=== PATIENT | male | born 1945 | race Caucasian/White ===

== ENCOUNTER 2018-11-23 21:31 | Emergency (ER) | payer MEDICARE ==
[~2018-11-23] VITALS: Ht 170.2 cm; Wt 79.4 kg
[2018-11-23] MEDS ORDERED: METF500 PO (21:58)
[2018-11-23] MEDS ORDERED: TAMS.4ER PO (21:58)
[2018-11-23 23:19] LABS: Source, Urine Catheter
[2018-11-23 23:31] LABS: Bilirubin, Urine Neg (Neg); Blood, Urine 5+ (Neg); Glucose Qualitative, Urine 2+ (Neg); Ketones, Urine 1+ (Neg); Leukocyte Esterase, Urine Neg (Neg); Nitrite, Urine Neg (Neg); Protein, Urine 4+ (Neg); Specific Gravity, Urine 1.025 (1.003-1.022); Urobilinogen, Urine NORM (Normal); pH, Urine 6.5 (5.0-8.0)
[2018-11-23 23:43] LABS: Appearance, Urine Bloody (Clear); Color, Urine Red (P-Yellow)
[2018-11-23 23:45] LABS: Bacteria Few /hpf; Red Blood Cells, Urine TNTC /hpf (0-2); Squamous Epithelial Cells Not Seen /hpf (Few); White Blood Cells, Urine Rare /hpf (0-5)
== END 2018-11-24 00:24 | disposition home or self-care (01) ==
LOC: ER 21:31
PROVIDERS: Emergency Medicine
DX: R33.9 Retention of urine, unspecified (principal); R31.9 Hematuria, unspecified; Z79.899 Other long term (current) drug therapy; Z79.84 Long term (current) use of oral hypoglycemic drugs; E11.9 Type 2 diabetes mellitus without complications
CPT/HCPCS: 51702; 51798; 74176; 81001; 87077; 87086; 87186; 99283-25

== ENCOUNTER 2018-11-27 08:30 | Emergency (ER) | payer MEDICARE ==
[~2018-11-27] VITALS: Ht 170.2 cm; Wt 79.4 kg
[~2018-11-27 08:30] MED LIST: METF500 PO; TAMS.4ER PO
[2018-11-27 09:03] LABS: BASOPHILS ABSOLUTE AUTO 0.04 K/mm3 (0.00-0.23); BASOPHILS PERCENT AUTO 1 % (0-2); EOSINOPHILS ABSOLUTE AUTO 0.16 K/mm3 (0.00-0.68); EOSINOPHILS PERCENT AUTO 2 % (0-6); Hemoglobin 14.5 g/dL (13.5-17.5); IMMATURE GRAN ABSOLUTE AUTO 0.06 K/mm3 (0.00-0.10); IMMATURE GRAN PERCENT AUTO 1 % (0-1); LYMPHOCYTES ABSOLUTE AUTO 1.91 K/mm3 (0.84-5.20); LYMPHOCYTES PERCENT AUTO 25 % (21-46); MONOCYTES ABSOLUTE AUTO 0.46 K/mm3 (0.16-1.47); MONOCYTES PERCENT AUTO 6 % (4-13); Mean Corpuscular HGB 28.7 pg (26.0-34.0); Mean Corpuscular HGB Conc 33.7 g/dL (31.5-36.5); Mean Corpuscular Volume 85 fL (80-100); Mean Platelet Volume 10.3 fL (9.1-12.4); NEUTROPHILS ABSOLUTE AUTO 4.98 K/mm3 (1.96-9.15); NEUTROPHILS PERCENT AUTO 66 % (41-73); Platelet Count 192 K/mm3 (150-400); RDW Coefficient Variation 12.4 % (11.7-14.2); RDW Standard Deviation 37.7 fL (35.1-46.3); Red Blood Cell Count 5.06 M/mm3 (4.30-5.90); White Blood Cell Count 7.61 K/mm3 (4.00-11.30)
[2018-11-27 09:24] LABS: Alanine Aminotransfer (ALT/SGP 42 U/L (12-78); Alk Phos 66 U/L (50-136); Anion Gap 9 mmol/L (6-16); Aspartate Aminotrans (AST/SGOT 23 U/L (12-37); Bilirubin, Total 0.4 mg/dL (0.1-1.0); Blood Urea Nitrogen 23 mg/dL (8-24); Bun/Creatinine Ratio 25.5 (12.0-20.0); CO2, Blood 23 mmol/L (21-32); Calcium, Blood 8.9 mg/dL (8.5-10.1); Chloride, Blood 106 mmol/L (98-108); Globulin, Blood 3.9 g/dL (2.2-4.0); Glomerular Filtration Rate >60 (60-); Glucose, Blood 200 mg/dL (70-99); Potassium, Blood 4.1 mmol/L (3.5-5.5); Sodium, Blood 138 mmol/L (136-145); Total Protein, Blood 7.9 g/dL (6.4-8.2)
[2018-11-27] MEDS ORDERED: Hytrin1 MG PO (10:28)
[2018-11-27] MEDS ORDERED: Norco 5-325 Ta1 EACH PO (10:28)
== END 2018-11-27 10:55 | disposition home or self-care (01) ==
LOC: ER 08:30
PROVIDERS: Emergency Medicine
DX: N32.89 Other specified disorders of bladder (principal); Z79.899 Other long term (current) drug therapy; Z79.84 Long term (current) use of oral hypoglycemic drugs; E11.9 Type 2 diabetes mellitus without complications
CPT/HCPCS: 36415; 51798; 80053; 85025; 86850; 86900; 86901; 93005; 93010; 99283-25; A9270-GY

== ENCOUNTER 2018-12-03 08:24 | Emergency (ER) | payer MEDICARE ==
[~2018-12-03] VITALS: Ht 170.2 cm; Wt 74.8 kg
[~2018-12-03 08:24] MED LIST changes: +Hytrin1 MG PO; +Norco 5-325 Ta1 EACH PO
[2018-12-03] MEDS ORDERED: CEPH250A PO (09:52)
[2018-12-03] MEDS ORDERED: ABAT250V (09:52)
[2018-12-03 11:56] LABS: Source, Urine Catheter
[2018-12-03 11:59] LABS: Bilirubin, Urine Neg (Neg); Blood, Urine 5+ (Neg); Glucose Qualitative, Urine Neg (Neg); Ketones, Urine Neg (Neg); Leukocyte Esterase, Urine 1+ (Neg); Nitrite, Urine Neg (Neg); Protein, Urine 2+ (Neg); Specific Gravity, Urine 1.025 (1.003-1.022); Urobilinogen, Urine NORM (Normal)
[2018-12-03 12:22] LABS: Appearance, Urine Hazy (Clear); Color, Urine Yellow (P-Yellow)
[2018-12-03 12:33] LABS: Bacteria Mod /hpf; Red Blood Cells, Urine TNTC /hpf (0-2); Squamous Epithelial Cells Rare /hpf (Few); Uric Acid Crystals Mod /hpf
== END 2018-12-03 13:00 | disposition home or self-care (01) ==
LOC: ER 08:24
PROVIDERS: Emergency Medicine
DX: T83.091A Other mechanical complication of indwelling urethral catheter, initial encounter (principal); E11.9 Type 2 diabetes mellitus without complications; Z79.899 Other long term (current) drug therapy; Z79.84 Long term (current) use of oral hypoglycemic drugs
CPT/HCPCS: 51700; 51798; 81001; 87086; 99283-25

== ENCOUNTER 2018-12-05 21:10 | Emergency (ER) | payer MEDICARE ==
[~2018-12-05] VITALS: Ht 170.2 cm; Wt 74.8 kg
[~2018-12-05 21:10] MED LIST changes: +ABAT250V; +CEPH250A PO
== END 2018-12-06 00:32 | disposition home or self-care (01) ==
LOC: ER 21:10
DX: T83.098A Other mechanical complication of other urinary catheter, initial encounter (principal); R33.9 Retention of urine, unspecified; Z79.899 Other long term (current) drug therapy; Z79.84 Long term (current) use of oral hypoglycemic drugs; E11.9 Type 2 diabetes mellitus without complications
CPT/HCPCS: 51700; 51702; 99282-25

== ENCOUNTER 2018-12-07 21:21 | Emergency (ER) | payer MEDICARE ==
[~2018-12-07] VITALS: Ht 170.2 cm; Wt 74.8 kg
== END 2018-12-07 23:02 | disposition home or self-care (01) ==
LOC: ER 21:21
DX: T83.098A Other mechanical complication of other urinary catheter, initial encounter (principal); C67.9 Malignant neoplasm of bladder, unspecified; Z79.899 Other long term (current) drug therapy; Z79.84 Long term (current) use of oral hypoglycemic drugs; E11.9 Type 2 diabetes mellitus without complications
CPT/HCPCS: 51700; 51798; 99283-25

== ENCOUNTER 2018-12-08 17:32 | Emergency (ER) | payer MEDICARE ==
[~2018-12-08] VITALS: Ht 170.2 cm; Wt 74.8 kg
== END 2018-12-08 18:47 | disposition home or self-care (01) ==
LOC: ER 17:32
DX: T83.091A Other mechanical complication of indwelling urethral catheter, initial encounter (principal); E11.9 Type 2 diabetes mellitus without complications; Z79.899 Other long term (current) drug therapy; Z79.84 Long term (current) use of oral hypoglycemic drugs
CPT/HCPCS: 51798; 74178; 99283-25; Q9967

== ENCOUNTER 2018-12-10 17:59 | Emergency (ER) | payer MEDICARE ==
[~2018-12-10] VITALS: Ht 170.2 cm; Wt 73.9 kg
== END 2018-12-10 20:30 | disposition home or self-care (01) ==
LOC: ER 17:59
DX: T83.091A Other mechanical complication of indwelling urethral catheter, initial encounter (principal); E11.9 Type 2 diabetes mellitus without complications; Z79.899 Other long term (current) drug therapy; Z79.84 Long term (current) use of oral hypoglycemic drugs
CPT/HCPCS: 99283

== ENCOUNTER 2018-12-12 16:29 | Emergency (ER) | payer MEDICARE ==
[~2018-12-12] VITALS: Ht 170.2 cm; Wt 73.9 kg
== END 2018-12-12 17:42 | disposition home or self-care (01) ==
LOC: ER 16:29
DX: T83.098A Other mechanical complication of other urinary catheter, initial encounter (principal); E11.9 Type 2 diabetes mellitus without complications; Z79.899 Other long term (current) drug therapy; Z79.84 Long term (current) use of oral hypoglycemic drugs
CPT/HCPCS: 51700; 99282-25

== ENCOUNTER → 2020-02-19 | Outpatient (CLI) | payer MEDICARE | END | disposition home or self-care (01) | LOC: LAB SHORT 15:11 → PLD 15:11 | DX: L82.1 Other seborrheic keratosis (principal) | CPT/HCPCS: 88305 ==

== ENCOUNTER 2022-05-26 09:55 | Observation (INO) | payer MEDICARE ==
[~2022-05-26] VITALS: Ht 170.2 cm; Wt 76.0 kg
[2022-05-26 10:19] LABS: BASOPHILS ABSOLUTE AUTO 0.05 K/mm3 (0.00-0.23); BASOPHILS PERCENT AUTO 1 % (0-2); EOSINOPHILS PERCENT AUTO 4 % (0-6); Hematocrit 45.7 % (37.0-53.0); Hemoglobin 15.6 g/dL (13.5-17.5); IMMATURE GRAN ABSOLUTE AUTO 0.06 K/mm3 (0.00-0.10); IMMATURE GRAN PERCENT AUTO 1 % (0-1); LYMPHOCYTES ABSOLUTE AUTO 2.05 K/mm3 (0.84-5.20); LYMPHOCYTES PERCENT AUTO 36 % (21-46); MONOCYTES ABSOLUTE AUTO 0.41 K/mm3 (0.16-1.47); MONOCYTES PERCENT AUTO 7 % (4-13); Mean Corpuscular HGB 28.2 pg (26.0-34.0); Mean Corpuscular HGB Conc 34.1 g/dL (31.5-36.5); Mean Corpuscular Volume 83 fL (80-100); Mean Platelet Volume 10.4 fL (9.1-12.4); NEUTROPHILS ABSOLUTE AUTO 2.93 K/mm3 (1.96-9.15); NEUTROPHILS PERCENT AUTO 51 % (41-73); Platelet Count 169 K/mm3 (150-400); RDW Coefficient Variation 12.6 % (11.7-14.2); RDW Standard Deviation 37.7 fL (35.1-46.3); Red Blood Cell Count 5.54 M/mm3 (4.30-5.90)
[2022-05-26 10:36] LABS: Albumin, Blood 3.6 g/dL (3.4-5.0); Albumin/Globulin Ratio 0.9 (0.8-1.8); Bilirubin, Total 0.4 mg/dL (0.1-1.0); Bun/Creatinine Ratio 24.6 (12.0-20.0); Calcium, Blood 8.6 mg/dL (8.5-10.1); Creatinine, Blood 0.69 mg/dL (0.60-1.20); Globulin, Blood 3.8 g/dL (2.2-4.0); Potassium, Blood 3.8 mmol/L (3.5-5.5); Total Protein, Blood 7.4 g/dL (6.4-8.2)
--- NOTE | 2022-05-26 16:49 | NUR ---
SHIFT SUMMARY: PT A&O X4. PT IS A VERY PLEASANT MAN WHO IS COOPERATIVE WITH ALL CARE PROVIDED. PT OBS FOR DX CHEST PAIN. PT HAS NOT HAD ANY BEEN SINCE ARRIVING TO MEDICAL FLOOR. PT HAS BEEN HYPERTENSIVE W/ SYSTOLIC BETWEEN 151 AND 192 SINCE ARRIVAL TO ED. CALLED DR. COLLADO WHO GAVE ME AN ORDER FOR HYDRALAZINE PO Q6 PRN SYSTOLIC >160. GAVE PT HYDRALAZINE AT 1633 AND WILL REASSESS AT 1730. PT INDEPENDENT IN ROOM. IV PATENT AND SALINE LOCKED. TELE IN PLACE RUNNING AT SINUS RHYTHM. TROPONIN REMAIN NEGATIVE. CALL LIGHT IN REACH. WILL CONTINUE TO MONITOR.
--- NOTE | 2022-05-27 05:17 | NUR ---
PT ISD A&O4, INDEPENDENT WITH ADLS, RA, VSS, NO CHEST PAIN OR DISCOMFORT OVERNIGHT, STRESS TEST TODAY, COTINUE POC
[2022-05-27 05:57] LABS: Bun/Creatinine Ratio 19.9 (12.0-20.0); Calcium, Blood 8.6 mg/dL (8.5-10.1); Creatinine, Blood 0.81 mg/dL (0.60-1.20); Potassium, Blood 3.9 mmol/L (3.5-5.5)
--- NOTE | 2022-05-27 07:55 | NUR ---
ALERT AND ORIENTED, PRN HYDRALAZINE FOR SBP 170, NPO FOR STRESS TEST, PATIENT TO POSSIBLE GO EARLY AND IF NOT PATIENT WILL EAT BREAKFAST WITHOUT CAFFEINE, CALL LIGHT WITH IN REACH, NO DISTRESS, PLEASANT TO CARE
--- NOTE | 2022-05-27 18:34 | NUR ---
NO ACUTE CHANGES, NPO AT MIDNOGHT AND NO CAFFEINE AFTER DINNER, PATIENT STATES UNDERSTANDING, SECOND PART OF STRESS TEST TO BE DONE AT 7 AM TOMORROW, DENIES CP, SOB, OR N/V, CALL LIGHT WITH IN REACH, PLEASANT TO CARE, WILL RELAY TO PM RN
--- NOTE | 2022-05-27 19:15 | NUR ---
RECEIVED BEDSIDE REPORT FROM DAY SHIFT RN. PT LYING IN BED WATCHING TV. A/O. RESP E/U ON RA. DENIES CP AND SOB. ON TELE. NO NEEDS AT THIS TIME. CALL LT IN REACH.
--- NOTE | 2022-05-27 20:37 | NUR ---
PT ALERT AND ORIENTED. UNDERSTANDS HE WILL BE NPO AFTER MIDNIGHT FOR 2ND PORTION OF STRESS TEST AT 0700. INDEP IN RM. DENIES CP AND SOB. NO EDEMA NOTED. SALINE LOCKED. SINUS AT 65 ON TELE. NO NEEDS AT THIS TIME. WILL CONTINUE TO PROVIDE CARE. CALL LT IN REACH.
--- NOTE | 2022-05-27 21:24 | NUR ---
NOTIFIED BY AFFILIATE MARKETING COORDINATOR THAT PT HAD A 2.46 SECOND PAUSE AT 2122. PER AFFILIATE MARKETING COORDINATOR, THIS WAS THE FIRST EVENT. CHECKED ON PT RIGHT AFTER THE CALL CAME AND PT WAS SITTING IN BED WATCHING TV. NO COMPLAINTS OF CP OR ANY OTHER SYMPTOM. RESP E/U ON RA. WILL CONTINUE TO PROVIDE CARE. CALL LT IN REACH.
--- NOTE | 2022-05-27 22:06 | NUR ---
25 MG PO HYDRALAZINE GIVEN FOR BP 168/73, HR 66. PT DENIES CP, CHEST PRESSURE AND SOB. NO OTHER NEEDS. PT WATCHING TV. CALL LT IN REACH.
--- NOTE | 2022-05-27 23:29 | NUR ---
PT RESTING QUIETLY LYING ON RIGHT SIDE. CALL LT IN REACH.
--- NOTE | 2022-05-28 01:13 | NUR ---
PT STATES HE'S PERFECT, DOING WELL, DENIES CP AND CHEST PRESSURE. NO NEEDS. CALL LT IN REACH.
--- NOTE | 2022-05-28 03:34 | NUR ---
PT STATES HE'S DOING GOOD. NO NEEDS. CALL LT IN REACH.
--- NOTE | 2022-05-28 04:38 | NUR ---
SHIFT SUMMARY: NO CHEST PAIN, CHEST PRESSURE OR SOB REPORTED BY PT. PT RESTED WELL. SINUS AT 65 ON TELE. ON RA. NPO FOR SECOND PART OF STRESS TEST AT 0700. NO ACUTE CHANGES. WILL CONTINUE TO PROVIDE CARE UNTIL SHIFT REPORT TO ONCOMING NURSE.
--- NOTE | 2022-05-28 05:49 | NUR ---
PT RESTING QUIETLY. CALL LT IN REACH.
[2022-05-28] MEDS ORDERED: ASPI81CH PO (13:24)
--- NOTE | 2022-05-28 13:45 | NUR ---
DISCHARGE SUMMARY: PT DISCHARGED HOME. EDUCATED PT ON DISCHARGE INSTRUCTIONS AND MEDICATIONS. APPT MADE WITH DR. MONGE ON 06/03/22. PT VU. PT REFUSED WC TRANSPORT AND AMBULATED SELF TO POV. PT STEADY ON FEET.
== END 2022-05-28 13:40 | disposition home or self-care (01) ==
LOC: ER 09:55 → MEDS 09:56
PROVIDERS: Anesthesiology; Nurse Practitioner Acute Care; ADMIT Internal Medicine
DX: R07.9 Chest pain, unspecified (principal); I25.10 Atherosclerotic heart disease of native coronary artery without angina pectoris; E11.9 Type 2 diabetes mellitus without complications; Z95.1 Presence of aortocoronary bypass graft; N40.0 Benign prostatic hyperplasia without lower urinary tract symptoms; E78.5 Hyperlipidemia, unspecified
CPT/HCPCS: 36415; 71046; 78452; 80048; 80053; 82947; 83036; 84484; 85025; 93005; 93010; 93017; 96372; 99285-25; A9270; A9500; G0378; J0280; J1650; J2785

== ENCOUNTER → 2024-04-06 | Outpatient (CLI) | payer MEDICARE ==
[~2024-04-06] MED LIST changes: +ASPI81CH PO
[2024-04-06 20:08] LABS: Microalb/Creat Ratio UR, Rand 93.478 mg/g (0.000-30.000)
== END | disposition home or self-care (01) ==
LOC: LAB SHORT 17:16 → LAB 17:16
PROVIDERS: Internal Medicine
DX: E11.65 Type 2 diabetes mellitus with hyperglycemia (principal)
CPT/HCPCS: 82043; 82570

== ENCOUNTER → 2024-04-07 | Outpatient (CLI) | payer MEDICARE ==
[2024-04-07 15:34] LABS: BASOPHILS ABSOLUTE AUTO 0.05 K/mm3 (0.00-0.23); BASOPHILS PERCENT AUTO 1 % (0-2); EOSINOPHILS PERCENT AUTO 4 % (0-6); Hematocrit 43.7 % (37.0-53.0); Hemoglobin 14.9 g/dL (13.5-17.5); IMMATURE GRAN ABSOLUTE AUTO 0.04 K/mm3 (0.00-0.10); IMMATURE GRAN PERCENT AUTO 1 % (0-1); LYMPHOCYTES ABSOLUTE AUTO 1.91 K/mm3 (0.84-5.20); LYMPHOCYTES PERCENT AUTO 35 % (21-46); MONOCYTES ABSOLUTE AUTO 0.42 K/mm3 (0.16-1.47); MONOCYTES PERCENT AUTO 8 % (4-13); Mean Corpuscular HGB 28.5 pg (26.0-34.0); Mean Corpuscular HGB Conc 34.1 g/dL (31.5-36.5); Mean Corpuscular Volume 84 fL (80-100); Mean Platelet Volume 11.2 fL (9.1-12.4); NEUTROPHILS ABSOLUTE AUTO 2.89 K/mm3 (1.96-9.15); NEUTROPHILS PERCENT AUTO 53 % (41-73); Platelet Count 172 K/mm3 (150-400); RDW Coefficient Variation 12.8 % (11.7-14.2); RDW Standard Deviation 38.5 fL (35.1-46.3); Red Blood Cell Count 5.22 M/mm3 (4.30-5.90); White Blood Cell Count 5.51 K/mm3 (4.00-11.30)
[2024-04-07 18:01] LABS: Alanine Aminotransfer (ALT/SGP 32 U/L (12-78); Albumin, Blood 3.7 g/dL (3.4-5.0); Albumin/Globulin Ratio 1.2 (0.8-1.8); Alk Phos 54 U/L (50-136); Anion Gap 14 mmol/L (3-11); Aspartate Aminotrans (AST/SGOT 18 U/L (12-37); Bilirubin, Total 0.7 mg/dL (0.1-1.0); Blood Urea Nitrogen 18 mg/dL (8-24); Bun/Creatinine Ratio 18.3 (12.0-20.0); CHOL/HDL RATIO 6.3; CO2, Blood 26 mmol/L (21-32); Calcium, Blood 8.6 mg/dL (8.5-10.1); Chloride, Blood 105 mmol/L (98-108); Cholesterol 220 mg/dL (50-200); Creatinine, Blood 0.99 mg/dL (0.60-1.20); Globulin, Blood 3.2 g/dL (2.2-4.0); Glomerular Filtration Rate 77 (60-); Glucose, Blood 225 mg/dL (70-99); HDL Cholesterol 35 mg/dL (>39); LDL/HDL RATIO 3.4; Low Density Lipoprotein Chol 119 mg/dL (0-110); Potassium, Blood 4.5 mmol/L (3.5-5.5); Sodium, Blood 140 mmol/L (136-145); Total Protein, Blood 6.9 g/dL (6.4-8.2); Triglycerides 328 mg/dL (30-160); Very Low Density Lipoprot Chol 65 mg/dL (6-32)
== END | disposition home or self-care (01) ==
LOC: LAB SHORT 13:55 → LAB 13:55
PROVIDERS: Internal Medicine
DX: E78.2 Mixed hyperlipidemia (principal); R31.9 Hematuria, unspecified
CPT/HCPCS: 80053; 80061; 85025